=== PATIENT | male | born 1975 | race Caucasian/White ===

== ENCOUNTER → 2018-07-20 | Outpatient (CLI) | payer OTHER ==
[~2018-07-20] MED LIST: [UNRECOGNIZED DRUG - OTHER] PO; [UNRECOGNIZED DRUG - OTHER] PO
[2018-07-20 15:03] LABS: MICROSCOPIC NOT IND
[2018-07-20 15:07] LABS: CULTURE INDICATED? NO
[2018-07-20 15:17] LABS: BASOPHILS # (AUTO) 0.05 x10^3/uL (0-0.1); BASOPHILS % (AUTO) 1 % (0-1); EOSINOPHILS # (AUTO) 0.11 x10^3/uL (0-0.4); EOSINOPHILS % (AUTO) 1 % (1-7); LYMPHOCYTES # (AUTO) 2.52 x10^3/uL (1-3.4); LYMPHOCYTES % (AUTO) 31 % (22-44); MD NO; MEAN CORPUSCULAR HEMOGLOBIN 29.7 pg (27.5-34.5); MEAN CORPUSCULAR HGB CONC 33.8 g/dL (33.2-36.2); MEAN CORPUSCULAR VOLUME 87.8 fL (81-97); MEAN PLATELET VOLUME 9.3 fL (7.4-10.4); MONOCYTES % (AUTO) 6 % (2-9); NEUTROPHILS # (AUTO) 4.88 x10^3/uL (1.8-6.8); NEUTROPHILS % (AUTO) 61 % (42-75); PLATELET COUNT 245 x10^3/uL (130-400); RED BLOOD COUNT 5.23 x10^6/uL (4.38-5.82); RED CELL DISTRIBUTION WIDTH 13.1 % (9.4-14.8)
[2018-07-20 15:22] LABS: ANION GAP 5 mmol/L (5-15); CHLORIDE 104 mmol/L (98-107); CREATININE 0.75 mg/dL (0.7-1.3)
[2018-07-20 16:48] LABS: INTERNATIONAL NORMALIZED RATIO 1.03 (0.93-1.1); PROTHROMBIN TIME 10.9 Seconds (9.6-11.5)
[2018-07-20 16:53] LABS: HCT (SEDRATE) 45.9 % (39.2-51.8)
== END | disposition home or self-care (01) ==
LOC: STAR 13:56
PROVIDERS: ATTEND Orthopaedic Surgery Orthopaedic Surgery of the Spine
DX: Z01.818 Encounter for other preprocedural examination (principal)
CPT/HCPCS: 36415; 71046; 80048; 81003; 85025; 85610; 85651; 85730; 87081; 87147; 93005

== ENCOUNTER 2018-07-24 08:30 | Inpatient (IN) | payer OTHER ==
[~2018-07-24] VITALS: Ht 180.3 cm; Wt 118.2 kg
[2018-07-24] MEDS ORDERED: VANCOMYCIN 1,000 MG ONE (08:41)
[2018-07-24] MEDS ORDERED: TRANEXAMIC ACID 100 MG/ML, 10ML ONE (08:41)
[2018-07-24] MEDS ORDERED: BUPIVACAINE/PF-EPI 0.5% 1:200K ONE (08:41)
[2018-07-24] MEDS ORDERED: SUCCINYLCHOLINE 20 MG/ML, 10ML ONE (10:53)
[2018-07-24] MEDS ORDERED: PROPOFOL 10 MG/ML, 20ML ONE (10:53)
[2018-07-24] MEDS ORDERED: ONDANSETRON 2MG/ML, 2ML ONE (10:53)
[2018-07-24] MEDS ORDERED: CEFAZOLIN 1,000 MG ONE (10:53)
[2018-07-24] MEDS ORDERED: DEXAMETHASONE 4 MG/ML, 1ML ONE (10:53)
[2018-07-24] MEDS ORDERED: ROCURONIUM 10MG/ML,5ML ONE (10:53)
[2018-07-24] MEDS ORDERED: VANCOMYCIN PMX 1GM/200ML 200 ML IV ONE (12:30)
[2018-07-24] MEDS ORDERED: LACTATED RINGERS 1,000 ML IV SCH (12:48)
[2018-07-24] MEDS ORDERED: LABETALOL 5MG/ML, 20ML IV PRN (13:30)
[2018-07-24] MEDS ORDERED: ALBUTEROL SULFATE 2.5 MG/3 ML NPPB PRN (13:30)
[2018-07-24] MEDS ORDERED: MEPERIDINE/PF 25MG/0.5ML IVPush PRN (13:30)
[2018-07-24] MEDS ORDERED: ONDANSETRON 2MG/ML, 2ML IVPush PRN ×2 (13:30→18:00)
[2018-07-24] MEDS ORDERED: PROMETHAZINE 25 MG/ML, 1ML IV PRN (13:30)
[2018-07-24] MEDS ORDERED: hydrALAzine 20 MG/ML, 1ML IV PRN (13:30)
[2018-07-24] MEDS ORDERED: KETOROLAC 30 MG/1 ML IV PRN ×2 (13:30→18:30)
[2018-07-24] MEDS ORDERED: METOCLOPRAMIDE 5 MG/ML, 2ML IV PRN (13:30)
[2018-07-24] MEDS ORDERED: OXYcodone 5 MG/5 ML ORAL.SOL UDC PO PRN (13:30)
[2018-07-24] MEDS ORDERED: MIDAZOLAM 1 MG/ML, 2ML ONE (13:53)
[2018-07-24] MEDS ORDERED: FENTANYL PF 250 MCG/5ML ONE (13:53)
[2018-07-24] MEDS ORDERED: FENTANYL PF 100 MCG/2ML ONE ×2 (15:12→16:25)
[2018-07-24] MEDS ORDERED: MEPERIDINE/PF 25MG/ML,1ML ONE (16:11)
[2018-07-24] MEDS ORDERED: OXYcodone 5 MG/5 ML ORAL.SOL UDC ONE (16:25)
[2018-07-24] MEDS: FENTANYL PF 100 MCG/2ML IV PRN ×2 (16:29→16:40)
[2018-07-24] MEDS: HYDROmorphone 1 MG/ML, 1ML IV PRN ×2 (16:33→16:47)
[2018-07-24] MEDS ORDERED: HYDROmorphone 1 MG/ML, 1ML ONE (16:42)
[2018-07-24] MEDS ORDERED: MAGNESIUM HYDROXIDE 8%, 30ML UDC PO PRN (18:00)
[2018-07-24] MEDS ORDERED: DIPHENHYDRAMINE 25 MG CAPSULE PO PRN (18:00)
[2018-07-24] MEDS ORDERED: morphine SULFATE 10 MG/ML, 1ML IV PRN (18:00)
[2018-07-24] MEDS ORDERED: PROMETHAZINE 25 MG SUPP PR PRN (18:00)
[2018-07-24] MEDS ORDERED: LORazepam 2 MG/ML, 1ML IV PRN (18:00)
[2018-07-24] MEDS ORDERED: BISACODYL 10 MG SUPP PR PRN (18:00)
[2018-07-24] MEDS ORDERED: ONDANSETRON ODT 4 MG PO PRN (18:00)
[2018-07-24] MEDS ORDERED: ZOLPIDEM 5MG TABLET PO PRN (18:00)
[2018-07-24] MEDS ORDERED: LORazepam 1MG TABLET PO PRN (18:00)
[2018-07-24] MEDS ORDERED: ALUMINUM/MAG/SIMETHICONE 30 ML UDC PO PRN (18:00)
[2018-07-24] MEDS ORDERED: PROMETHAZINE 25 MG/ML, 1ML IM PRN (18:00)
[2018-07-24] MEDS ORDERED: SENNA/DOCUSATE TABLET PO PRN (18:30)
[2018-07-24] MEDS ORDERED: DIAZEPAM 5 MG TABLET PO PRN (18:30)
[2018-07-24] MEDS ORDERED: DEXAMETHASONE 4 MG/ML, 1ML IV PRN (18:30)
[2018-07-24] MEDS ORDERED: ACETAMINOPHEN 500 MG TABLET PO PRN (18:30)
[2018-07-24] MEDS ORDERED: SODIUM CHLORIDE 0.9% 1,000 ML IV PRN (18:30)
[2018-07-24] MEDS ORDERED: TRANEXAMIC ACID 1,000 MG in SODIUM CHLORIDE 0.9% 100 ML IVPB ONE (18:30)
[2018-07-24] MEDS ORDERED: ACETAMINOPHEN 325 MG TABLET PO PRN (18:30)
[2018-07-24] MEDS: POTASSIUM CHLORIDE 20 MEQ in D5%-0.45% NACL 1,000 ML IV SCH (19:47)
[2018-07-24] MEDS: SODIUM CHLORIDE FLUSH 10ML SYR IVF SCH (19:58)
[2018-07-24 21:55] VITALS: BP 128/81
[2018-07-24] MEDS: PREGABALIN 75 MG CAPSULE PO SCH (22:40)
[2018-07-24] MEDS: DOCUSATE 100 MG CAPSULE PO SCH (22:40)
[2018-07-24] MEDS: CEFAZOLIN PMX 2GM/50ML 50 ML IVPB SCH (22:41)
[2018-07-24] MEDS: SCOPOLAMINE PATCH, 1.5MG PATCH.TD72 TD SCH (22:41)
[2018-07-25 00:20] VITALS: BP 94/57
[2018-07-25] MEDS ORDERED: VANCOMYCIN PMX 1GM/200ML 200 ML IVPB ONE (03:00)
[2018-07-25 03:17] VITALS: BP 109/62
[2018-07-25] MEDS: OXYcodone IR 5MG TABLET PO PRN ×5 (04:16→15:45)
[2018-07-25] MEDS: CEFAZOLIN PMX 2GM/50ML 50 ML IVPB SCH (05:53)
[2018-07-25] MEDS ORDERED: ASPIRIN 325 MG TABLET EC PO SCH (06:00)
[2018-07-25] MEDS: POTASSIUM CHLORIDE 20 MEQ in D5%-0.45% NACL 1,000 ML IV SCH (06:06)
[2018-07-25 08:29] VITALS: BP 112/66
[2018-07-25] MEDS: DOCUSATE 100 MG CAPSULE PO SCH (09:30)
[2018-07-25] MEDS: PREGABALIN 75 MG CAPSULE PO SCH (09:30)
[2018-07-25] MEDS: SODIUM CHLORIDE FLUSH 10ML SYR IVF SCH (09:31)
[2018-07-25] MEDS: SCOPOLAMINE PATCH, 1.5MG PATCH.TD72 TD SCH (12:48)
[2018-07-25 14:58] VITALS: BP 112/90
[2018-07-25] MEDS ORDERED: OXYC5TAB3 PO (15:26)
[2018-07-25] MEDS ORDERED: ASPI-650 PO (15:27)
[2018-07-25] MEDS ORDERED: DIAZ5TAB4 PO (15:27)
[2018-07-25] MEDS ORDERED: CEPH-368 PO (15:28)
== END 2018-07-25 16:00 | disposition home or self-care (01) | DRG 468 ==
LOC: ORIP 12:13 → 4NOR 17:32
PROVIDERS: ADMIT Orthopaedic Surgery Orthopaedic Surgery of the Spine; ATTEND Orthopaedic Surgery Orthopaedic Surgery of the Spine
PROC: 0SRD0J9 Replacement of Left Knee Joint with Synthetic Substitute, Cemented, Open Approach (ICD-10-PCS; 2018-07-24)
PROC: 3E0T3BZ Introduction of Anesthetic Agent into Peripheral Nerves and Plexi, Percutaneous Approach (ICD-10-PCS; 2018-07-24)
PROC: 0SPD0JZ Removal of Synthetic Substitute from Left Knee Joint, Open Approach (ICD-10-PCS; principal; 2018-07-24 13:00)
DX: T84.033A Mechanical loosening of internal left knee prosthetic joint, initial encounter (principal); T84.84XA Pain due to internal orthopedic prosthetic devices, implants and grafts, initial encounter; G47.33 Obstructive sleep apnea (adult) (pediatric); E66.9 Obesity, unspecified; Y79.2 Prosthetic and other implants, materials and accessory orthopedic devices associated with adverse incidents; Y92.89 Other specified places as the place of occurrence of the external cause; Z68.36 Body mass index [BMI] 36.0-36.9, adult
CPT/HCPCS: 36415; 85014; 85018; C1713; G0378; J0690; J1100; J1170; J2175; J2250; J2405; J2704; J3010; J3370; J3480; C1776; J0330; J7120

== ENCOUNTER 2020-01-14 08:07 | Outpatient (CLI) | payer OTHER ==
[~2020-01-14 08:07] MED LIST changes: +ASPI-650 PO; +CEPH-368 PO; +DIAZ5TAB4 PO; +OXYC5TAB3 PO
[2020-01-14] MEDS ORDERED: OXYC15TA3 PO (09:12)
[2020-01-14] MEDS ORDERED: ACET325T14 PO (09:12)
[2020-01-14] MEDS ORDERED: MULT-449 PO (09:12)
[2020-01-14] MEDS ORDERED: DIAZ5TAB4 PO (09:12)
[2020-01-14 09:43] LABS: HCT (SEDRATE) 46.3 % (39.2-51.8)
[2020-01-14 09:44] LABS: BASOPHILS # (AUTO) 0.04 x10^3/uL (0-0.1); BASOPHILS % (AUTO) 1 % (0-1); EOSINOPHILS # (AUTO) 0.14 x10^3/uL (0-0.4); EOSINOPHILS % (AUTO) 2 % (1-7); LYMPHOCYTES % (AUTO) 24 % (22-44); MD NO; MEAN CORPUSCULAR HEMOGLOBIN 30.2 pg (27.5-34.5); MEAN CORPUSCULAR HGB CONC 33.3 g/dL (33.2-36.2); MEAN CORPUSCULAR VOLUME 90.7 fL (81-97); MONOCYTES # (AUTO) 0.64 x10^3/uL (0.2-0.8); MONOCYTES % (AUTO) 7 % (2-9); NEUTROPHILS # (AUTO) 5.88 x10^3/uL (1.8-6.8); NEUTROPHILS % (AUTO) 67 % (42-75); PLATELET COUNT 275 x10^3/uL (130-400); RED BLOOD COUNT 5.07 x10^6/uL (4.38-5.82)
[2020-01-14 09:52] LABS: INTERNATIONAL NORMALIZED RATIO 0.97 (0.93-1.1)
[2020-01-14 09:54] LABS: ANION GAP 5 mmol/L (5-15); CALCIUM 9.1 mg/dL (8.5-10.1); CHLORIDE 107 mmol/L (98-107)
[2020-01-14 09:55] LABS: CREATININE 0.99 mg/dL (0.7-1.3)
== END 2020-01-14 23:59 | disposition home or self-care (01) ==
LOC: STAR 08:07
PROVIDERS: ATTEND Orthopaedic Surgery Orthopaedic Surgery of the Spine
DX: Z01.818 Encounter for other preprocedural examination (principal); Z11.59 Encounter for screening for other viral diseases; M47.814 Spondylosis without myelopathy or radiculopathy, thoracic region; J98.4 Other disorders of lung; M25.562 Pain in left knee; M23.8X2 Other internal derangements of left knee
CPT/HCPCS: 36415; 71046; 80048; 83036; 85025; 85610; 85651; 85730; 87635; 93005